=== PATIENT | male | born 1990 | race Two or more races ===

== ENCOUNTER 2025-02-08 17:05 | Emergency (ER) | payer MEDICAID, OTHER ==
[~2025-02-08] VITALS: Ht 180.3 cm; Wt 109.4 kg
[2025-02-08 17:16] VITALS: BP 144/85; PULSE 89; RESP 12; TEMP 98.6; O2SAT 95
[2025-02-09] MEDS ORDERED: METH4PAK PO (03:44)
[2025-02-09] MEDS ORDERED: TIZA-142 PO (03:44)
[2025-03-05] MEDS ORDERED: ZOFR4T PO (21:43)
== END 2025-02-08 18:36 | disposition left against medical advice (07) ==
LOC: ER 17:08
DX: M54.9 Dorsalgia, unspecified (principal); Z53.21 Procedure and treatment not carried out due to patient leaving prior to being seen by health care provider

== ENCOUNTER 2025-02-09 02:43 | Emergency (ER) | payer MEDICAID ==
[~2025-02-09] VITALS: Ht 180.3 cm; Wt 111.4 kg
--- NOTE | 2025-02-09 02:54 | ED.PDOC ---
Back pain HPI HPI Comments PT CAME TO THE ER WITH CC OF BACK PAIN THAT TRAVELS DOWN THE LEFT BUTTOCKS. PT IS A&OX4 RR EVEN AND REGULAR NO DISTRESS NOTED AT THIS TIME. PT DENIES N/V/D CP SOB, INJURY, WEAKNESS, NUMBNESS, SADDLE ANESTHESIA. OR LOSS OF BOWEL/BLADDER CONTROL Chief Complaint: Back Pain Time Seen by MD: 02:45 Reviewed Notes: Nurses Notes, Medications, Allergies Allergies: Coded Allergies: NO KNOWN ALLERGIES (Unverified , 02/08/25) Information Source: Patient Mode of Arrival: Ambulatory All Other Systems: Reviewed and Negative (SEE HPI ) Physical Exam General Appearance: No Apparent Distress, Normal HEENT: Pharynx Normal Neck: Full Range of Motion, Non-Tender Respiratory: Lungs Clear, No Respiratory Distress, Normal Breath Sounds Cardiovascular: No Murmur, Normal Peripheral Pulses, Regular Rate/Rhythm Breast Exam: Deferred Gastrointestinal: Non Tender, Soft Genitalia: Deferred Pelvic: Deferred Rectal: Deferred Extremities: Normal capillary refill, Normal range of motion Musculoskeletal : Location: Left Extremity Location: Back (Tenderness palpated over left lower back musculature L1 through L5 lumbar spine without crepitus or step-offs negative straight legs bilateral no noted gross external trauma strength sensory motion intact.) Apperance: Normal Neurologic: Alert, No Motor Deficits, Normal Affect, Normal Mood, No Sensory Deficits Cerebellar Function: Normal Reflexes: Normal Skin: Dry, Normal Color, Warm Lymphatic: No Adenopathy Was a procedure done? Was a procedure done?: No Back Pain Differential Dx Differential Diagnosis: Fracture, Musculoskeletal Pain X-Ray, Labs, Meds, VS Vital Signs Date Time Temp Pulse Resp B/P (MAP) Pulse Ox O2 Delivery O2 Flow Rate FiO2 02/09/25 03:21 97.7 95 18 156/97 (116) 96 97.7 02/09/25 03:21 95 18 96 Room Air 02/09/25 02:44 97.7 95 18 156/97 96 97.7 Current Medications Medications (Trade) Dose Ordered Sig/Yasmine Route Start Time Stop Time Status Last Admin Ketorolac Tromethamine (Toradol Injection) 60 mg ONCE ONCE IM 02/09/25 03:00 02/09/25 03:01 DC 02/09/25 03:21 Dexamethasone Sodium Phosphate (Decadron Injection) 10 mg ONCE ONCE IM 02/09/25 03:00 02/09/25 03:01 DC 02/09/25 03:22 Acetaminophen/ Hydrocodone Bitart (Buda 5/325MG Tab) 1 tab ONCE ONCE PO 02/09/25 03:00 02/09/25 03:01 DC 02/09/25 03:21 X-Ray, Labs, Meds, VS Comment LUMBAR X-RAY IMPRESSION: No acute finding of the lumbar spine. Mild spondylosis. Likely lumbar strain patient given Toradol 60 mg IM and Decadron 10 mg IM and [place] 5 mg p.o. reports improvement in pain and function requesting discharge at this time. Advised to rest alternate between ice and heat. Script trial of muscle relaxer and Medrol Dosepak. Advised take medications as prescribed side effects discussed. Follow up with your PCP in 2-3 days as necessary consider further imaging such as MRI if symptoms persist. ER return precautions given patient indicates understanding agrees with discharge plan of care. Time of 1ST Reevaluation: 02:54 Reevaluation 1ST: Unchanged Time of 2ND Reevaluation: 03:42 Reevaluation 2ND: Improved Patient Education/Counseling: Diagnosis, Treatment, Need For Follow Up Family Education/Counseling: No Family Present SEPSIS Sepsis Screen Date sepsis recognized/suspect: Feb 09, 2025 Time Sepsis recognized/suspect: 0248 Recent Procedure: No On Antibiotic Therapy: No Respiratory Rate >20: No Heart Rate >90: Yes Temp<36 C (96.8 F) or >38.3 C: No SBP <90 or MAP <65 mmHG: No New Acute Mental Status Change: No Is the patient on CPAP, BIPAP,: No Physician Orders Lumbar Spine 3 View (02/09/25 02:54) Vital Signs Date Time Temp Pulse Resp B/P (MAP) Pulse Ox O2 Delivery O2 Flow Rate FiO2 02/09/25 03:21 97.7 95 18 156/97 (116) 96 97.7 02/09/25 03:21 95 18 96 Room Air 02/09/25 02:44 97.7 95 18 156/97 96 97.7 Medications Medications Dose Ordered Sig/Yasmine Route Start Time Stop Time Status Last Admin Dose Admin Acetaminophen/ Hydrocodone Bitart 1 tab ONCE ONCE PO 02/09/25 03:00 02/09/25 03:01 DC 02/09/25 03:21 Dexamethasone Sodium Phosphate 10 mg ONCE ONCE IM 02/09/25 03:00 02/09/25 03:01 DC 02/09/25 03:22 Ketorolac Tromethamine 60 mg ONCE ONCE IM 02/09/25 03:00 02/09/25 03:01 DC 02/09/25 03:21 Departure 1 Departure Time of Disposition: 03:44 Impression: Primary Impression: Lumbar sprain Qualified Codes: S33.5XXA - Sprain of ligaments of lumbar spine, initial encounter Disposition: HOME / SELF CARE / HOMELESS Condition: Stable e-Prescriptions Methylprednisolone (Medrol Dosepak) 4 Mg Lamin 4 MG PO UD for 6 Days, #21 TAB UAD Prov: BESSY PAINTER 02/09/25 Tizanidine Hydrochloride (Tizanidine Hcl) 4 Mg Tab 4 MG PO BID PRN for 5 Days, #10 TAB Prov: BESSY PAINTER 02/09/25 Discharged With: Self Critical Care Note Critical Care Time?: No Stability Stability form required: No BESSY PAINTER Feb 09, 2025 02:54
[2025-02-09 03:21] VITALS: BP 156/97; PULSE 95; RESP 18; TEMP 97.7; O2SAT 96
[2025-02-09] MEDS: HYDROcodone-ACET 5/325MG TAB PO ONE (03:21)
[2025-02-09] MEDS: KETOROLAC TROMETH 60MG/2ML VIAL IM ONE (03:21)
--- NOTE | 2025-02-09 03:36 | DVH ---
INDICATION: LOW BACK PAIN TECHNIQUE: 3 views of the lumbar spine were obtained. COMPARISON: None FINDINGS: No evidence of acute vertebral fracture or significant compression deformity. Normal lordotic curvat ure without listhesis. Mild multilevel spondylosis. No acute finding of the imaged abdominal conten ts are osseous pelvis. IMPRESSION: No acute finding of the lumbar spine. Mild spondylosis.
[2025-02-09] MEDS ORDERED: TIZA-142 PO (03:44)
[2025-02-09] MEDS ORDERED: METH4PAK PO (03:44)
== END 2025-02-09 04:18 | disposition home or self-care (01) ==
LOC: ER 02:43
DX: S33.5XXA Sprain of ligaments of lumbar spine, initial encounter (principal); X58.XXXA Exposure to other specified factors, initial encounter; Y93.89 Activity, other specified; Y92.89 Other specified places as the place of occurrence of the external cause; Y99.8 Other external cause status
CPT/HCPCS: 72100; 96372; 99284; J1100; J1885